=== PATIENT | male | born 1985 | race American Indian/Alaskan Native ===

== ENCOUNTER 2020-09-16 10:00 | Emergency (ER) | payer SELFPAY ==
[2020-09-16 10:05] VITALS: BP 123/75
--- NOTE | 2020-09-16 10:34 | Emergency Department Report ---
Chief Complaint: Abdominal Pain Stated Complaint: LT SIDE PAIN Time Seen by Provider: 09/16/20 10:15 - HPI History of Present Illness: 35-year-old -[place] male presents with complaints of penile discharge and dysuria x3 days. He states he believes he has an STD and admits to recent unprotected intercourse. He denies any penile/testicular lesions/swelling, fever/chills/sweats, abdominal pain, or swollen hot joints. Symptoms appear to be consistent with STI. Recommend follow-up with health department or other facility provided on clinic list to patient within 24 hours. Discussed signs and symptoms that should prompt immediate return to the emergency department in detail patient verbalized understanding. He is well- appearing, vitals are normal, he is stable for discharge home. - Exam Vital Signs: Vital Signs 09/16/20 10:04 Temperature 98.1 F Pulse Rate 93 H Respiratory 16 Rate Blood Pressure 123/75 O2 Sat by Pulse 100 Oximetry MSE screening note: Focused history and physical exam performed. Due to findings the following was ordered: ED Disposition for MSE Disposition: MED SCREENING EXAM-LEFT Condition: Stable Referrals: PRIMARY CARE, [Primary Care Provider] - 3-5 Days ED Physical Exam - General Limitations: No Limitations General appearance: alert, in no apparent distress - Head Head exam: Present: atraumatic, normocephalic - Eye Eye exam: Absent: scleral icterus - Neck Neck exam: Present: normal inspection - Respiratory Respiratory exam: Present: normal lung sounds bilaterally. Absent: respiratory distress - Cardiovascular Cardiovascular Exam: Present: regular rate, normal rhythm. Absent: systolic murmur, diastolic murmur, rubs, gallop - GI/Abdominal GI/Abdominal exam: Present: soft. Absent: distended, tenderness, guarding, rebound, rigid - Extremities Exam Extremities exam: Present: full ROM. Absent: tenderness, joint swelling - Back Exam Back exam: Present: normal inspection - Neurological Exam Neurological exam: Present: alert, oriented X3, normal gait - Psychiatric Psychiatric exam: Present: normal affect, normal mood - Skin Skin exam: Present: warm, dry, intact, normal color. Absent: rash ED Review of Systems ROS: Stated complaint: LT SIDE PAIN Other details as noted in HPI Constitutional: denies: chills, fever, malaise ENT: denies: throat pain Respiratory: denies: cough, shortness of breath Cardiovascular: denies: chest pain Endocrine: denies: excessive sweating Gastrointestinal: denies: abdominal pain, nausea, vomiting Genitourinary: dysuria, discharge. denies: urgency, frequency, hematuria, testicular pain, testicular mass Skin: denies: rash, lesions, change in color Hematological/Lymphatic: denies: swollen glands
== END 2020-09-16 10:22 | disposition left against medical advice (07) ==
LOC: ED 10:00
DX: R36.9 Urethral discharge, unspecified (principal); R30.0 Dysuria; Z53.21 Procedure and treatment not carried out due to patient leaving prior to being seen by health care provider